=== PATIENT | female | born 1955 | race African-American/Black ===

== ENCOUNTER 2018-04-26 10:11 | Emergency (ER) | payer MEDICARE, MEDICAID ==
[~2018-04-26] VITALS: Ht 167.6 cm; Wt 137.0 kg
[2018-04-26] MEDS ORDERED: HYDR12.529 PO (10:22)
[2018-04-26] MEDS ORDERED: AMLO2.5T2 PO (10:22)
[2018-04-26 12:37] VITALS: BP 147/87
== END 2018-04-26 12:38 | disposition home or self-care (01) ==
LOC: ER 10:30
DX: J45.990 Exercise induced bronchospasm (principal); I10 Essential (primary) hypertension; J45.909 Unspecified asthma, uncomplicated; Z88.5 Allergy status to narcotic agent; Z79.899 Other long term (current) drug therapy
CPT/HCPCS: 71045; 93005; 99284